=== PATIENT | female | born 1950 ===

== ENCOUNTER 2020-08-10 10:56 | Emergency (ER) | payer OTHER ==
[~2020-08-10] VITALS: Ht 152.4 cm; Wt 53.1 kg
[2020-08-10] MEDS ORDERED: SYMBICORT 16010.2 GM (11:06)
[2020-08-10] MEDS ORDERED: DUI500 PO (12:05)
[2020-08-10] MEDS ORDERED: MUPIROCIN1 G1 TOP (12:05)
== END 2020-08-10 12:36 | disposition home or self-care (01) ==
LOC: ER 10:56
DX: R21 Rash and other nonspecific skin eruption (principal)

== ENCOUNTER 2022-06-26 10:03 | Emergency (ER) | payer OTHER ==
[~2022-06-26] VITALS: Ht 152.4 cm; Wt 56.7 kg
[~2022-06-26 10:03] MED LIST: DUI500 PO; MUPIROCIN1 G1 TOP; SYMBICORT 16010.2 GM
== END 2022-06-26 14:27 | disposition home or self-care (01) ==
LOC: ER 10:03
DX: J40 Bronchitis, not specified as acute or chronic (principal); B34.9 Viral infection, unspecified; Z20.822 Contact with and (suspected) exposure to COVID-19